=== PATIENT | female | born 1950 | race Hispanic/Latino ===

== ENCOUNTER 2017-01-29 11:04 | Emergency (ER) | payer MEDICARE ==
[2017-01-29 11:05] VITALS: BMI 28.3
--- NOTE | 2017-01-29 12:00 | C.PDOC ---
History Of Present Illness 66 y/o female presents to the ED complaining of right hand pain. Patient states that yesterday she tripped and fell onto her outstretched right hand. Patient denies head injury or loss of consciousness. She states the area has become swollen and painful, prompting ED visit. Patient has history of breast cancer on right side and is s/p right lumpectomy and lymph node removal. PMD: Virgil Little Time Seen by Provider: 01/29/17 11:20 Chief Complaint (Nursing): Finger,Hand,&Wrist History Per: Patient History/Exam Limitations: no limitations Onset/Duration Of Symptoms: Days (x2) Current Symptoms Are (Timing): Still Present Severity: Moderate Past Medical History Reviewed: Historical Data, Nursing Documentation, Vital Signs Vital Signs: Last Vital Signs Temp 97.9 F 01/29/17 12:13 Pulse 77 01/29/17 12:13 Resp 17 01/29/17 12:13 BP 117/77 01/29/17 12:13 Pulse Ox 100 01/29/17 12:13 - Medical History PMH: Arthritis, Migraine (LONG AGO) - [employer] Procedures CHANGE PACKING MATERIAL ON RIGHT LOWER EXTREMITY (10/08/15) CLOSED ENDOSCOPIC BIOPSY OF LARGE INTESTINE (11/10/13) DRAINAGE OF R UP LEG SUBCU/FASCIA, OPEN APPROACH (10/08/15) ENDOSC POLYPECTOMY OF LG INTEST (11/10/13) EXCISION OF R UP LEG SUBCU/FASCIA, OPEN APPROACH (10/08/15) EXCISION OF RIGHT UPPER LEG SKIN, EXTERNAL APPROACH (10/08/15) EXTRACTION OF R UP LEG SUBCU/FASCIA, OPEN APPROACH (10/08/15) FLUOROSCOPY OF SUP VENA CAVA USING L OSM CONTRAST, GUIDANCE (10/08/15) INJECT/INFUSE NEC (11/10/13) INSERTION OF INFUSION DEV INTO SUP VENA CAVA, PERC APPROACH (10/08/15) Family History: States: No Known Family Hx - Social History Hx Alcohol Use: No Hx Substance Use: No Review Of Systems Except As Marked, All Systems Reviewed And Found Negative. Constitutional: Negative for: Other (Head trauma, loss of consciousness) Cardiovascular: Negative for: Chest Pain, Palpitations Respiratory: Negative for: Shortness of Breath Musculoskeletal: Positive for: Hand Pain (Right) Physical Exam - Physical Exam Appears: Well, Non-toxic, No Acute Distress Skin: Normal Color, Warm, Dry Head: Atraumatic, Normacephalic Eye(s): bilateral: Normal Inspection Oral Mucosa: Moist Neck: Normal, Normal ROM, No Midline Cervical Tenderness, No Paracervical Tenderness, No Step Off Deformity, Supple Cardiovascular: Rhythm Regular Respiratory: Normal Breath Sounds, No Rales, No Rhonchi, No Wheezing Back: Normal Inspection, No Vertebral Tenderness Extremity: Normal ROM (with ROM intact at right wrist and all digits), Tenderness (Right hand diffusely tender to palpation. Wrist, forearm, and elbow nontender.), Capillary Refill (< 2 sec all digits ), No Deformity, Swelling ( Right hand moderately swollen. Palmar aspect with ecchymosis. ) Extremity: Bilateral: Normal Color And Temperature Pulses: Left Radial: Normal, Right Radial: Normal Neurological/Psych: Oriented x3, Normal Sensation (right hand/arm) Gait: Steady ED Course And Treatment O2 Sat by Pulse Oximetry: 97 (RA) Pulse Ox Interpretation: Normal - Other Rad X-Ray Right Hand X-Ray: Viewed By Me, Read By Radiologist Interpretation: No evidence of acute fracture or dislocation. [id number] soft tissue swelling. Progress Note: Xray of right hand ordered and reviewed. Patient did not want pain medication in ED. Right hand jay wrap and shoulder slig (to elevate hand) applied by service tech. Xray negative for fracture/dislocation. Patient instructed to ice and elevate hand and follow up with hand surgeon within 1 week. She understands she should return to ED if symptoms worsen. Reevaluation Time: 12:15 Reassessment Condition: Improved Medical Decision Making Medical Decision Making: right hand moderate swelling - due to contusion + decreased lymph nodes on right due to breast CA Disposition Counseled Patient/Family Regarding: Studies Performed, Diagnosis, Need For Followup, Rx Given - Disposition Referrals: Virgil Little MD [Staff Provider] - Mark Bobo MD [Staff Provider] - [facility] [Outside] Disposition: HOME/ ROUTINE Disposition Time: 12:15 Condition: STABLE Additional Instructions: ELEVATE HAND MUCH POSSIBLE APPLY ICE TO AREA SEVERAL TIMES DAILY USE MEDICATION NEEDED FOR PAIN FOLLOW UP WITH HAND SURGEON WITHIN 1 WEEK IF SYMPTOMS PERSIST RETURN TO ER IF SYMPTOMS WORSEN Prescriptions: Naproxen 375 mg PO BID PRN #25 tablet PRN Reason: pain Instructions: Hand Sprain (ED) Forms: [employer] (Kittitian) Print Language: KYRGYZ - POA Present On Arrival: Falls Or Trauma - Clinical Impression Clinical Impression: Sprain of hand, right, Contusion of right hand - Scribe Statement The provider has reviewed the documentation as recorded by the Scribvini Álvarez All medical record entries made by the Scribe were at my direction and personally dictated by me. I have reviewed the chart and agree that the record accurately reflects my personal performance of the history, physical exam, medical decision making, and the department course for this patient. I have also personally directed, reviewed, and agree with the discharge instructions and disposition.
--- NOTE | 2017-01-29 12:05 | RAD ---
PROCEDURE: Right Hand Radiographs. HISTORY: right hand injury r/o fx COMPARISON: None. FINDINGS: BONES: No evidence of acute fracture. JOINTS: Moderate arthritic and degenerative changes seen at the right hand joints. SOFT TISSUES: [id number] soft tissue swelling seen diffusely in the right hand OTHER FINDINGS: None. IMPRESSION: No evidence of acute fracture or dislocation. Moderate arthritic and degenerative changes. [id number] soft tissue swelling.
[2017-01-29 12:13] VITALS: BP 117/77; PULSE 77; RESP 17; TEMP 97.9
[2017-01-31 09:23] VITALS: O2SAT 97
== END 2017-01-29 12:19 | disposition home or self-care (01) ==
LOC: C.ER 11:04
DX: S63.91XA Sprain of unspecified part of right wrist and hand, initial encounter (principal); W01.0XXA Fall on same level from slipping, tripping and stumbling without subsequent striking against object, initial encounter

== ENCOUNTER 2018-08-15 09:00 | Outpatient (CLI) | payer MEDICARE | END 2018-08-15 09:01 | disposition home or self-care (01) | LOC: C.MAMMO 09:00 ==